=== PATIENT | female | born 1995 ===

== ENCOUNTER 2025-04-10 22:57 | Emergency (ER) | payer SELFPAY ==
[2025-04-10 23:00] VITALS: BP 105/57; PULSE 82; RESP 16; TEMP 36.3; O2SAT 100; BMI 23.0
== END 2025-04-11 09:30 | disposition left against medical advice (07) ==
PROVIDERS: Emergency Provider Emergency Medicine
DX: K08.89 Other specified disorders of teeth and supporting structures (principal); Z53.21 Procedure and treatment not carried out due to patient leaving prior to being seen by health care provider
CPT/HCPCS: 99281